=== PATIENT | male | born 1955 | race Caucasian/White ===

== ENCOUNTER 2024-06-08 20:31 | Observation (INO) | payer MEDICARE, OTHER, SELFPAY ==
[2024-06-08 16:04] VITALS: BP 142/92
[2024-06-08 16:32] LABS: % Basophils 0.7 % (0-2); % Immature Granulocytes 0.3 % (0-0.5); % Monocytes 11.3 % (1.7-9.3); % Neutrophils 54.7 % (42.2-75.2); Absolute Basophils 0.1 10^3/uL (0-0.2); Absolute Eosinophils 0.2 10^3/uL (0-0.7); Absolute Lymphocytes 2.3 10^3/uL (1.2-3.4); Absolute Monocytes 0.8 10^3/uL (0.1-0.6); Absolute Neutrophils 4.1 10^3/uL (1.4-6.5); Hematocrit 39.4 % (39.0-52.0); Hemoglobin 13.6 g/dL (13.0-18.0); Mean Corp Hgb Conc. 34.5 g/dL (33.0-37.0); Mean Corpuscular Hgb 31.2 pg (27.0-31.0); Mean Corpuscular Volume 90.4 fL (80.0-94.0); Mean Platelet Volume 10.7 fL (7.4-10.4); Nucleated Red Blood Cells % 0 % (-); Platelet Count 179 10^3/uL (130-400); Red Blood Cell Count 4.36 10^6/uL (4.70-6.10); Red Cell Dist. Width 13.2 % (11.5-14.5); White Blood Cell Count 7.4 10^3/uL (4.8-10.8)
--- NOTE | 2024-06-08 16:35 | ED.GENMED ---
History of Present Illness
General
Chief Complaint: Headache
Source: patient and family
Exam Limitations: none
Time Seen by Provider: 06/08/24 16:34
Nursing documentation reviewed up to this point in time: agreed with
History of Present Illness
History of Present Illness:
69-year-old male with history of GERD, HLD states he awakened yesterday feeling fine, developed headache and has had generalized headache off and on throughout the day yesterday and today. Went to [employer] 9 a.m. yesterday and while playing
pool at 11 a.m developed sudden onset dizziness, lightheadedness and trouble with his balance. He had to sit down. He went home, took Advil, sinus medication nasal spray and slept well through the night.
Woke 5 a.m. today feeling fine with no symptoms, got lunches around, did usual tasks, went to [employer] 9 a.m playing pool at 9:50 a.m again developed lightheadedness, felt faint, 'foggy in my head.' Friend told him he had NO slurred speech. Sat
and rested, went home 10:20 a.m. took BP over the next hour ranges from 100-116/61-72.
Pt denies numbness, tingling, weakness in extremities. He feels mildly foggy and lightheaded. Denies change in vision. Denies n/v/d/c. Denies abdominal pain.
Not anticoagulated.
No new medications
Past History
Past History
ED Past Medical History: Hypercholesterolemia and Other (IBS)
ED Past Surgical History: Other (Hernia repair, Polyps removed 2 weeks ago from today.)
Social History
Tobacco: Smoker (states he quit 2 months ago)
Alcohol: None
Personal:
Living: with family
Review of Systems
Review of Systems
Allergies reviewed?: Yes
All Other Systems: ROS reviewed and negative except as documented in HPI and ROS
Constitutional: Denies fever or fatigue
Respiratory: Denies trouble breathing
Cardiac: Denies chest pain, diaphoresis, palpitations or syncope
ABD/GI: Denies abdominal pain, nausea, vomiting, diarrhea or anorexia
: Reports difficulty voiding (enlarged prostate); Denies dysuria, frequency or urgency
Musculoskeletal: Reports other (nothing new than his typical neck, back arthritis pains); Denies edema
Skin: Reports no symptoms
Neurological: Reports dizzy and headache; Denies weakness or numbness
Phy Exam
Physical Exam
Physical Exam:
GENERAL: No acute distress. A&Ox3.
CONSTITUTIONAL: Afebrile.
EYES: PERRL, conjunctivae normal
Neck: Supple
ENMT: moist mucus membranes, Pharynx nl
RESPIRATORY: Regular respirations, nonlabored, lungs clear.
CARDIOVASCULAR: Regular rate and rhythm, no murmurs, no rubs.
GI: Soft, nontender, normal BS
MUSCULOSKELETAL: Moves with ease. Well perfused.
SKIN: Warm, dry, pink
PSYCH: Normal mood and affect. Well kept, interactive and appropriate
NEUROLOGIC: Awake, alert and oriented. Speech clear. Cranial nerves II through XII intact. No focal neurological deficits
Scores
NIH Stroke Score
Level of Consciousness: 0 - Alert
LOC Questions: 0-Answers both correctly
LOC Commands: 0-Performs both correctly
Best Horizontal Gaze: 0-Normal
Visual Marti: 0=Normal, no visual loss
Facial Palsy: 0=Normal, symmetrical
Motor - Right Arm: 0=No drift 10 seconds
Motor - Left Arm: 0=No drift 10 seconds
Motor - Right Le-No drift 5 seconds
Motor - Left Le-No drift 5 seconds
Limb Ataxia: 0-Absent
Sensation: 0-Normal
Best Language: 0-No aphasia
Dysarthria: 0-Normal
Extinction and Inattention: 0-No abnormality
Total Score:: 0
Course
Orders/Labs/Results
Orders:
Orders
06/08/24 16:09
Electrocardiogram (*1) Urgent
Reason for Study: Chest Pain
EKG- Treatment ONCE
06/08/24 16:18
Complete Blood Count/With Diff Urgent
Comprehensive Metabolic Panel Urgent
06/08/24 16:54
CT Head & Neck Angio W/wo IV Urgent
Comment:
Reason For Exam: headaches, lightheaded, imbalanced past 2 days
06/08/24 17:13
Orthostatic VS- Treatment ONCE
06/08/24 19:56
COVID-19 Antigen Urgent
Source: Nasal Swab
06/08/24 20:12
Admit/Transfer Patient As Directed
Co-Sign Provider:
Level of Care: Observation services
Assign to:: Telemetry
Physician / Group: Philipp
Diagnosis: Dysequilibrium
Reason for Telemetry: CVA/TIA
Date to Stop Telemetry: 06/11/24
Time to Stop Telemetry: 11:00
PRN Pain Medication Management As Directed
May give lesser potent ordered pain med per pt: Yes
preference::
Protocol:: Medication orders for pain may be administered in a
manner that supports deferring to patient preference
when the pt is:
- Requesting an ordered lesser potent pain medication.
Least to most potent pain medications are defined
as: acetaminophen < NSAID < tramadol < opioids
(morphine, oxycodone, hydromorphone).
- Requesting a lesser dose of the same medication IF
ORDERED.
- Requesting a less intrusive route of administration
if both routes are prescribed by the provider (PO <
IV).
06/08/24 20:19
Code Status As Directed
Resuscitation Status: Full Code
06/08/24 21:45
Acetaminophen [Tylenol/Feverall] 650 mg RECTAL Q4HPRN PRN
Acetaminophen [Tylenol] 650 mg PO Q4HPRN PRN
Meclizine [Antivert] 25 mg PO Q8HPRN PRN
06/08/24 21:45
DIETARY CONSULT Routine
Reason for Consult: stroke/TIA
MR Brain Without Contrast Routine
Comment:
Reason For Exam: dysequilibrium
Recent pill cam endoscopy?: No
Activity As Directed
Activity Level: Out of Bed-Early Mobility
With Assistance
Neurological Checks As Directed
Frequency: q4h
Additional Instructions:: q4h x 24h upon admission to the floor, then qshift & with any change in condition
and mental status
Patient Education As Directed
Type: Stroke education packet
Comment: provide to patient and family
Pneumatic Compression Sleeves As Directed
Type: Knee high
Vital Signs As Directed
Frequency: Per unit guidelines
Ot Eval And Treat Routine
Pt Eval And Treat Routine
Activity Level: Out of Bed-Early Mobility
DX Deep Vein Thrombosis Video Routine
06/08/24 22:00
Atorvastatin [Lipitor] 20 mg PO HS
Famotidine [Pepcid] 40 mg PO HS
06/11/24 11:00
DC Protocol for Telemetry ONCE
Abnormal Lab Results
06/08/24
16:18
RBC 4.36 L 10^6/uL
(4.70-6.10)
MCH 31.2 H pg
(27.0-31.0)
MPV 10.7 H fL
(7.4-10.4)
Absolute Monos (auto) 0.8 H 10^3/uL
(0.1-0.6)
Monocytes % 11.3 H %
(1.7-9.3)
Glucose 104 H mg/dl
(70-99)
06/08/24 16:18
06/08/24 16:18
Vital Signs
Initial and Last Documented VS:
Initial Vital Signs
Temp Pulse Resp BP Pulse Ox
98.3 F 73 16 142/92 98
06/08/24 16:04 06/08/24 16:04 06/08/24 16:04 06/08/24 16:04 06/08/24 16:04
Last Documented Vital Signs
Temp Pulse Resp BP Pulse Ox
97.8 F 68 18 131/87 97
06/08/24 21:57 06/08/24 21:57 06/08/24 21:57 06/08/24 21:57 06/08/24 21:57
MDM/Problems Addressed
Differential Diagnosis Includes:
CVA, TIA, vertigo
MDM/Problems Addressed:
69-year-old male with history of GERD, HLD states he awakened yesterday feeling fine, developed headache and has had generalized headache off and on throughout the day yesterday and today. Went to [employer] 9 a.m. yesterday and while playing
pool at 11 a.m developed sudden onset dizziness, lightheadedness and trouble with his balance. He had to sit down. He went home, took Advil, sinus medication nasal spray and slept well through the night.
Woke 5 a.m. today feeling fine with no symptoms, got lunches around, did usual tasks, went to [employer] 9 a.m playing pool at 9:50 a.m again developed lightheadedness, felt faint, 'foggy in my head.' Friend told him he had NO slurred speech. Sat
and rested, went home 10:20 a.m. took BP over the next hour ranges from 100-116/61-72.
Pt denies numbness, tingling, weakness in extremities. He feels mildly foggy and lightheaded. Denies change in vision. Denies n/v/d/c. Denies abdominal pain.
Not anticoagulated.
No new medications
Symptoms and exam not consistent with vertigo, concern for central etiology
Afebrile, NAD
Orthostatics neg
CBC CMP unremarkable
NIH score 0
7:[address] angio radiology report read: IMPRESSION:
1. No acute intracranial abnormality.
2. No CTA evidence for high-grade stenosis or occlusion of the arterial vasculature in the head or neck.
Case discussed with Dr. Juarez who agrees with plan to admit for MRI
Hospitalist notified of admission.
*EKG
EKG Intrepretation Date: 06/08/24
Interpretation: normal
Comparison EKG: no changes
Rate: bradycardiac
Rhythm: sinus
[place]: normal axis
Interval: normal interval
QRS Pattern: normal QRS
*Critical Care Note
Total Time (30-74mins, 75-104mins- exclusive of procedures): Not Applicable
ED Attending Note
-
Portions of this chart may have been created with voice recognition software.� Occasional wrong word or��sound alike� substitutions may have occurred due to the inherent limitations of voice recognition software.
Discharge Plan
Departure
Patient Disposition: Admit
Date of Disposition: 06/08/24
Time of Disposition: 19:21
Admit to: Med/Surg
Presentation/result/management discussed w/ accepting MD/DO: Hospitalist
Condition: Fair
Discharge Problem:
Intermittent lightheadedness, Headache, intermittent imbalance
Interventions
Interventions:
*Risk Screen - Suicide Last Done: 06/08/24 16:04
*General Assessment Last Done: 06/08/24 16:04
*Neglect/Abuse Screening Last Done: 06/08/24 16:04
ED- Fall Risk Assessment Last Done: 06/08/24 21:40
*ED COVID-19 Vaccine History Last Done: 06/08/24 17:04
*Nursing Disposition Last Done: 06/08/24 21:40
ED- Cardiac Assessment Last Done: 06/08/24 17:26
ED- Neurological Assessment Last Done: 06/08/24 17:26
ED Swallowing Screen Last Done: 06/08/24 17:26
Discharge Date and Time
Discharge Date/Time: 06/08/24 21:40
[2024-06-08 16:40] LABS: ALT (SGPT) 27 U/L (0-50); AST (SGOT) 30 U/L (17-59); Albumin 4.3 g/dl (3.5-5.0); Alkaline Phosphatase 60 U/L (38-126); Blood Urea Nitrogen 19 mg/dl (9-20); Calcium 9.1 mg/dl (8.4-10.2); Carbon Dioxide 30 mmol/L (22-30); Chloride 105 mmol/L (98-107); Glucose 104 mg/dl (70-99); Potassium 4.3 mmol/L (3.5-5.1); Sodium 141 mmol/L (135-145); Total Bilirubin 0.4 mg/dl (0.2-1.3); Total Protein 6.7 g/dl (6.3-8.2); eGFR > 60.00
[2024-06-08 17:04] VITALS: BMI 30.2
[2024-06-08 17:13] VITALS: BP 123/81; BP 136/71; BP 136/78; PULSE 52; PULSE 58; PULSE 64
[2024-06-08 19:27] VITALS: BP 156/59
[2024-06-08 20:16] LABS: COVID-19 Antigen Negative (Negative)
--- NOTE | 2024-06-08 20:26 | HPS.HSE ---
Addendum entered and electronically signed by Yaakov Segal DO 06/08/24 21:54:
Patient seen and examined independently. Agree with findings and plan as set forth by Daphnie Pedraza PA-C.
Patient is a 69y M with PMH significant for GERD and dyslipidemia who presents to ED complaining of headache and feeling 'off-balance'. Patient states that he initially developed symptoms last PM while shooting pool. He felt unsteady, lack of
coordination and mild headache. He though his symptoms were sinus-related and he took NSAIDs and nasal spray and went to sleep. Today he felt fairly well until his symptoms recurred - again while shooting pool. He notes some nausea but no emesis.
He denies any prior history of similar symptoms. Evaluation in the ED was fairly unremarkable. Nystagmus is appreciated on physical exam.
Ass:
Headache / Dizziness
Suspected Vertigo
Dyslipidemia
GERD
Plan:
Observe overnight for further evaluation and treatment.
Follow for any new / worsening symptoms.
Meclizine PRN.
MRI in the AM for completeness. Consider Neuro eval if any abnormality.
PT / Vestibular Therapy evaluation.
Original Note:
Family Physician
-
Family Physician: Gopi Faustin
Chief Complaint
-
Headache and Imbalance
History of Present Illness
Patient is a 69 y/o male past medical history of hyperlipidemia, and GERD who presents with headache and difficulty with balance. Patient reports yesterday while playing pool at the [employer] he developed a headache with was associated
difficultly with balance. He states he went home took some Advil and used a nasal spray with improvement in his symptoms. This morning he felt back his usual. He reports he went to the [employer] to play pool again today and he developed
recurrent symptoms. He reports feeling off, with a foggy feeling in his head and difficulty concentrating associated again with difficulty with balance. He denies spinning sensation or changes in hearing. He denies focal numbness, tingling or
weakness. There were no speech abnormalities noted during the event. He denies any symptoms at the present time.
Medical History
Past Medical History
Past Medical History: Reports Other
Additional Past Medical History:
Hyperlipidemia
GERD
Macular Degeneration
Past Surgical History: Reports Other
Additional Past Surgical History:
Hernia Repair
Social History
Tobacco: Smoker (Currently about 4 cigarettes per day)
Alcohol: None
Drug: Marijuana (Occasionally for sleep)
Family History
Family History: Not pertinent
Allergies / Home Medications
Allergies reflects when Allergies were last updated in [facility].
Home Medications with original date entered in [facility]
Allergy/Medication List:
Allergies
Allergy/AdvReac Type Severity Reaction Status Date / Time
tamsulosin [From Flomax] Allergy hypotension Verified 06/08/24 16:09
Home Medications
Bifidobacterium infantis 4 mg capsule (Align) 4 mg PO HS 06/08/24
atorvastatin 20 mg tablet 20 mg PO HS 06/08/24
famotidine 40 mg tablet 40 mg PO HS 06/08/24
glucosam 750 mg-chondroi 100 mg-hyalur 1.65 mg-CF borate 108 mg tablet ([employer]) 1 tab PO HS 06/08/24
ibuprofen 200 mg tablet 400 mg PO HS 06/08/24
meloxicam 15 mg tablet 15 mg PO HS 06/08/24
saw palmetto 160 mg capsule 160 mg PO HS 06/08/24
therapeutic multivitamin 1 tab PO HS 06/08/24
vitamins A,C,G-kyhz-xqishi 4,296 mcg-226 mg-90 mg capsule (PreserVision AREDS) 2 cap PO HS 06/08/24
Review of Systems
-
A 12 point ROS was completed and negative except as noted: Yes
Constitutional: Denies Fever or Chills
Respiratory: Denies Cough or Trouble Breathing
Cardiac: Denies Chest Pain or Palpitations
Abdomen/GI: Denies Abdominal Pain, Nausea or Vomiting
Neurological: Reports See HPI
Physical Exam
Vital Signs
Vital Signs
Temp Pulse Resp BP Pulse Ox
98.3 F 55 14 156/59 96
06/08/24 16:04 06/08/24 20:00 06/08/24 20:00 06/08/24 19:27 06/08/24 19:45
Physical Exam
General: Comfortable and Conversant
HEENT: Anicteric, Moist mucous membranes and Other (PERRL; EOMI with positive horizontal nystagmus)
Respiratory: Clear and Non Labored Respirations
Cardiac: S1/S2 and Regular Rhythm
GI: Soft and Non Tender
Musculoskeletal: No Clubbing, No Cyanosis and No Edema
Skin: Warm and Dry
Neuro: Awake, Alert, Oriented, No Motor Deficits and Other (Intact finger to nose); No Slurred Speech
Psych: Calm
Laboratory Results
-
06/08/24 16:18
06/08/24 16:18
Laboratory Results
Total Bilirubin 0.4 mg/dl (0.2-1.3) 06/08/24 16:18
AST 30 U/L (17-59) 06/08/24 16:18
ALT 27 U/L (0-50) 06/08/24 16:18
Alkaline Phosphatase 60 U/L (38-126) 06/08/24 16:18
Data Reviewed
-
CT Scan: Report Reviewed by me
Lab Data: Labs Reviewed by me
Impression/Plan
-
Dysequilibrium suspect BPPV, less likely TIA/CVA
-Consult PT/OT for vestibular therapy
-Add meclizine prn
-Check Brain MRI
-Hold on Neurology consult unless MRI is positive
Hyperlipidemia
-Continue atorvastatin
GERD
-Continue Pepcid
Tobacco Use Disorder
-Offer nicotine patch with patient declined
DVT proph: SCDs
Code Status: Full Code
[2024-06-08 21:57] VITALS: BP 131/87
[2024-06-08 21:58] VITALS: BMI 29.5
--- NOTE | 2024-06-08 22:00 | PTCARENOTE ---
Pt transferred from ED. Pt AAOX3, [employer], able to make needs known, no complaints of dizziness neuro checks initiated. Pt oriented to unit, call reyes within reach, bed in lowest position. Will continue with current plan.
[2024-06-08] MEDS: PEPCID 40 MG PO (22:09)
[2024-06-08] MEDS: TYLENOL 650 MG PO (22:09)
[2024-06-08] MEDS: LIPITOR 20 MG PO (22:09)
[2024-06-08 23:22] VITALS: BP 133/64
[2024-06-09 03:23] VITALS: BP 118/68
[2024-06-09 07:11] VITALS: BP 106/46
[2024-06-09 07:15] VITALS: BP 106/47; BP 131/73; BP 139/64; PULSE 50; PULSE 53; PULSE 55
--- NOTE | 2024-06-09 10:47 | CM ---
assistant credit manager reviewed patient's chart and met with patient, patient made aware that he is OBS, [place] letter provided to patient but not signed, patient reports he is leaving AMA. Patient lives with significant other in a 2 story home, patient is
independent with adl's and ambulation, no dme.
PCP: Dr. Faustin
Pharmacy: [facility]
Plan; Home today, patient left AMA.
--- NOTE | 2024-06-09 11:25 | PTCARENOTE ---
patient was frustrated this am when advertising writer came in room to assess pt. pt reported wanting tele pack off and IV out. pt was educated the importance of IV access and monitoring heart rhythm, but pt was just interested in receiving MRI and then going
home. pt also not wanting blood pressure taken or anything besides the MRI. pt pulled off monitor and threatened to walk out if IV wasn't removed and if he didn't get MRI soon. this RN called down to MRI and was told he would be seen soon.
at approximately 10am pt was called down to MRI and as soon as pt was on stretcher he reported needing a sedative. pt BP and HR low at this time. MD notified of patient vitals and made aware that he would like something for anxiety. pt placed back
in room pending medication for MRI. spoke with pt and wanted him to receive fluids & blood pressure before any medication was given. pt frustrated and signed paperwork for AMA. MD aware of pt signing AMA. pt got dressed and left hospital against
medical advice around 1030 this morning
--- NOTE | 2024-06-09 12:32 | W.PN.HOSP.TC ---
Today's Communication/Plan
-
pt left ama
vestibular therapy
f/u pcp outpatient
Assessment / Plan
Assessment / Plan
Physical Exam
General: Comfortable and Conversant
HEENT: Anicteric, Moist mucous membranes and Other (PERRL; EOMI with positive horizontal nystagmus)
Respiratory: Clear and Non Labored Respirations
Cardiac: S1/S2 and Regular Rhythm
GI: Soft and Non Tender
Musculoskeletal: No Clubbing, No Cyanosis and No Edema
Skin: Warm and Dry
Neuro: Awake, Alert, Oriented, No Motor Deficits and Other (Intact finger to nose); No Slurred Speech
Psych: Calm
Dysequilibrium suspect BPPV, less likely TIA/CVA
-Consult PT/OT for vestibular therapy
-Add meclizine prn
-Check Brain MRI
-Hold on Neurology consult unless MRI is positive
Hyperlipidemia
-Continue atorvastatin
GERD
-Continue Pepcid
Tobacco Use Disorder
-Offer nicotine patch with patient declined
DVT proph: SCDs
Code Status: Full Code
Patient refusing care; leaving AMA. educated on risks and patient verbalizes understanding and agrees.
Anticipated Discharge: Today
Subjective/Interval History
-
Date of Service: June 09, 2024
wants to leave ama, does not want BP taken or MRI done
Objective Data
-
Vital Signs:
Vital Signs
Temp Pulse Resp BP Pulse Ox
97.6 F 50 18 106/46 98
06/09/24 07:11 06/09/24 07:11 06/09/24 07:11 06/09/24 07:11 06/09/24 07:11
I&O
06/08/24 06/09/24 06/10/24
06:59 06:59 06:59
Intake Total 120 / 120
Output Total 250 / 250
Balance -130 / -130
Review of Systems
-
History Source: Patient
All other systems: Not reviewed unless documented
Data Reviewed
-
Labs: Labs Reviewed by me
--- NOTE | 2024-06-09 12:38 | W.DS.TRANS ---
DC Summary - Skip Pitman
-
Discharge Instructions:
Instructions:
Stand-Alone Forms:
Changes to Home Medications: No
Discharge Medications:
DC Medications w/original date entered in [employer]
Bifidobacterium infantis 4 mg capsule (Align) 4 mg PO HS Gastrointestinal Issue 06/08/24
atorvastatin 20 mg tablet 20 mg PO HS High Cholesterol 06/08/24
famotidine 40 mg tablet 40 mg PO HS Gastrointestinal Issue 06/08/24
glucosam 750 mg-chondroi 100 mg-hyalur 1.65 mg-CF borate 108 mg tablet ([employer] 1 tab PO HS Supplement 06/08/24
ibuprofen 200 mg tablet 400 mg PO HS Pain 06/08/24
meloxicam 15 mg tablet 15 mg PO HS Pain 06/08/24
saw palmetto 160 mg capsule 160 mg PO HS Supplement 06/08/24
therapeutic multivitamin 1 tab PO HS Supplement 06/08/24
vitamins A,C,U-icbu-xsrqgj 4,296 mcg-226 mg-90 mg capsule (PreserVision AREDS) 2 cap PO HS Supplement 06/08/24
Home Medication Changes
NA
Pending Results: No
== END 2024-06-09 12:19 | disposition left against medical advice (07) ==
LOC: 4 WEST ACU 20:31
PROVIDERS: Physician Assistant Medical; ADMITTING PHYSICIAN Hospitalist; ATTENDING PHYSICIAN Internal Medicine; EMERGENCY PHYSICIAN Emergency Medicine; FAMILY PHYSICIAN Family Medicine
DX: R42 Dizziness and giddiness (principal); R51.9 Headache, unspecified; K21.9 Gastro-esophageal reflux disease without esophagitis; E78.00 Pure hypercholesterolemia, unspecified; K58.9 Irritable bowel syndrome, unspecified; F17.210 Nicotine dependence, cigarettes, uncomplicated; R07.9 Chest pain, unspecified; H35.30 Unspecified macular degeneration; R00.1 Bradycardia, unspecified; R26.89 Other abnormalities of gait and mobility; Z86.0100 Personal history of colon polyps, unspecified; Z88.8 Allergy status to other drugs, medicaments and biological substances; Z11.52 Encounter for screening for COVID-19
CPT/HCPCS: 70496; 70498; 80053; 85025; 87811; 93005; 99285; Q9967

== ENCOUNTER 2024-06-09 17:32 | Observation (INO) | payer MEDICARE, OTHER, SELFPAY ==
[2024-06-09 13:01] VITALS: BP 168/97
[2024-06-09 15:58] VITALS: BP 180/84
--- NOTE | 2024-06-09 16:21 | ED.GENMED ---
History of Present Illness
General
Chief Complaint: Change in Mental Status
Source: patient
Exam Limitations: none
Time Seen by Provider: 06/09/24 16:15
Nursing documentation reviewed up to this point in time: agreed with
History of Present Illness
History of Present Illness:
Patient to ED with complaint of dizziness, feeling foggy. He was admitted here yesterday with complaint of headache, dizziness, weakness, blance issues. States this AM he felt worse and then became upset that he had not received any medication
prior to his scheduled MRI. States he wont be able to tolerate MRI without mediation to control anxiety. In anger he signed out AMA. He returns to ED requesting readmission to complete work-up. States he is still not feeling well. Brought to ED
by spouse for eval.
Past History
Past History
ED Past Medical History: Hypercholesterolemia and Other (IBS)
ED Past Surgical History: Other (Hernia repair, Polyps removed 2 weeks ago from today.)
Social History
Tobacco: Smoker (states he quit 2 months ago)
Alcohol: None
Personal:
Living: with family
Review of Systems
Review of Systems
Allergies reviewed?: Yes
All Other Systems: ROS reviewed and negative except as documented in HPI and ROS
Constitutional: Reports fatigue
EENT: Reports no symptoms
Respiratory: Reports no symptoms
Cardiac: Reports no symptoms
ABD/GI: Reports no symptoms
: Reports no symptoms
Musculoskeletal: Reports no symptoms
Skin: Reports no symptoms
Neurological: Reports dizzy and weakness
Psychiatric: Reports no symptoms
Phy Exam
General Physical Exam
General Presentation: mild distress
General age: appears stated age
General Skin: warm and dry
General Habitus: normal
Eye Exam
Eye Exam: PERRL, EOMI and conjunctiva normal
Cardiovascular Exam
Cardiovascular Exam: regular rate/rhythm and no edema
Gastrointestinal Exam
Gastrointestinal Exam: non tender and soft
Musculoskeletal Exam
Musculoskeletal Exam: full ROM and neuro vasc intact
Skin Exam
Skin Exam: normal color, warm/dry and no rash
Psychiatric Exam
Psychiatric Exam: normal mood/affect
Course
Orders/Labs/Results
Orders:
Orders
06/09/24 Breakfast
Cholesterol Lowering
At Your Request: Full Participation
Does patient need a safe tray?: No
Cholesterol Lowering: Sodium, 2 Gram
06/09/24 16:45
Admit/Transfer Patient As Directed
Co-Sign Provider:
Level of Care: Observation services
Assign to:: Telemetry
Physician / Group: sal
Diagnosis: dizziness
Reason for Telemetry: Arrhythmia
Date to Stop Telemetry: 06/12/24
Time to Stop Telemetry: 11:00
06/09/24 16:46
PRN Pain Medication Management As Directed
May give lesser potent ordered pain med per pt: Yes
preference::
Protocol:: Medication orders for pain may be administered in a
manner that supports deferring to patient preference
when the pt is:
- Requesting an ordered lesser potent pain medication.
Least to most potent pain medications are defined
as: acetaminophen < NSAID < tramadol < opioids
(morphine, oxycodone, hydromorphone).
- Requesting a lesser dose of the same medication IF
ORDERED.
- Requesting a less intrusive route of administration
if both routes are prescribed by the provider (PO <
IV).
06/09/24 16:47
Code Status As Directed
Resuscitation Status: Full Code
06/09/24 16:50
Nicotine [Nicoderm Transdermal] 21 mg TRANSDERM NOW STA
06/09/24 17:01
CMP [Comprehensive Metabolic Panel] Urgent
Complete Blood Count/With Diff Urgent
06/09/24 18:19
Acetaminophen [Tylenol] 650 mg PO Q4HPRN PRN
Bisacodyl [Dulcolax] 10 mg RECTAL C26FFIS PRN
Docusate W/Senna [Senokot-S] 1 tablet PO BIDPRN PRN
Lactated Ringers [Lr] 1,000 ml IV 75 mls/hr
Lorazepam [Ativan] 1 mg IV NOW PRN
Meclizine [Antivert] 12.5 mg PO Q8HPRN PRN
Polyethylene Glycol Powder [Miralax] 17 grams PO DAILYPRN PRN
06/09/24 18:19
Activity As Directed
Activity Level: As Tolerated
Orthostatic Vital Signs As Directed
Orthostatic VS Frequency: Now
Vital Signs As Directed
Frequency: Per unit guidelines
Ot Eval And Treat Routine
Pt Eval And Treat Routine
Treatment: Vestibular therapy
Activity Level: As Tolerated
DX Deep Vein Thrombosis Video Routine
06/09/24 19:58
Troponin I Q6H
06/09/24 20:50
Urinalysis Reflex To Culture Routine
Date Specimen was Collected: 06/09/24
Time Specimen was Collected: 20:47
06/09/24 22:00
Atorvastatin [Lipitor] 20 mg PO HS
Famotidine [Pepcid] 40 mg PO HS
06/10/24 00:00
Heparin 5,000 units SC Q8
06/10/24 02:34
Troponin I Q6H
06/10/24 08:13
Complete Blood Count/No Diff IN AM
Comprehensive Metabolic Panel IN AM
Magnesium IN AM
TSH IN AM
06/12/24 11:00
DC Protocol for Telemetry ONCE
Abnormal Lab Results
06/09/24
17:01
RBC 4.53 L 10^6/uL
(4.70-6.10)
MPV 10.8 H fL
(7.4-10.4)
Absolute Neuts (auto) 6.9 H 10^3/uL
(1.4-6.5)
Absolute Monos (auto) 0.7 H 10^3/uL
(0.1-0.6)
Lymphocytes % 20.1 L %
(20.5-51.1)
06/09/24 17:01
06/09/24 17:01
Vital Signs
Initial and Last Documented VS:
Initial Vital Signs
Temp Pulse Resp BP Pulse Ox
98.5 F 83 16 168/97 97
06/09/24 13:01 06/09/24 13:01 06/09/24 13:01 06/09/24 13:01 06/09/24 13:01
Last Documented Vital Signs
Temp Pulse Resp BP Pulse Ox
97.6 F 60 16 140/80 97
06/10/24 14:59 06/10/24 14:59 06/10/24 14:59 06/10/24 14:59 06/10/24 14:59
MDM/Problems Addressed
Differential Diagnosis Includes:
Patient to ED requesting readmission. He was admitted here yesterday for change in mental status. Reports feeling foggy, weak. This AM he became agitated prior to AMA because he felt he needed sedation prior to his MRI and states nothing had been
ordered. He signed himself out AMA but now returns because he is still symptomatic.Brought back to ED by family. No new symptoms. WIll re-admit to hospitalist
*Critical Care Note
Total Time (30-74mins, 75-104mins- exclusive of procedures): Not Applicable
ED Attending Note
-
Portions of this chart may have been created with voice recognition software.� Occasional wrong word or��sound alike� substitutions may have occurred due to the inherent limitations of voice recognition software.
Discharge Plan
Departure
Patient Disposition: Admit
Date of Disposition: 06/09/24
Time of Disposition: 16:26
Presentation/result/management discussed w/ accepting MD/DO: Hospitalist
Condition: Fair
Covid-19: Not Applicable
Discharge Problem:
Headache, Dizziness, Ambulatory dysfunction
Interventions
Interventions:
*Risk Screen - Suicide Last Done: 06/09/24 13:01
*General Assessment Last Done: 06/09/24 13:01
ED- Fall Risk Assessment Last Done: 06/09/24 15:56
*ED COVID-19 Vaccine History Last Done: 06/09/24 13:01
*Nursing Disposition Last Done: 06/09/24 18:53
ED- Pulmonary Assessment Last Done: 06/09/24 15:56
ED- Neurological Assessment Last Done: 06/09/24 15:56
ED- Cardiac Assessment Last Done: 06/09/24 15:56
Discharge Date and Time
Discharge Date/Time: 06/09/24 19:06
[2024-06-09] MEDS: NICODERM TRANSDERMAL 21 MG TRANSDERM (17:01)
--- NOTE | 2024-06-09 17:02 | HPS.HSE ---
Family Physician
-
Family Physician: Gopi Faustin
Chief Complaint
-
dizziness
History of Present Illness
69y M with PMH significant for GERD and dyslipidemia who presents to ED complaining of headache and feeling 'off-balance'. Patient symptoms started while playing pool. Symptoms included unsteadiness, lacrimation, mild headache. Patient was
admitted for workup, and nystagmus noted on physical exam. Patient was for MRI and PT/OT to evaluate although patient left AMA. Now hypertensive with blood pressure 180/84, RR 20, pulse 97. Afebrile. CT angio shows with no evidence of high-grade
stenosis or occlusion.
Medical History
Past Medical History
Past Medical History: Reports Other
Additional Past Medical History:
Hyperlipidemia
GERD
Macular Degeneration
Past Surgical History: Reports Other
Additional Past Surgical History:
Hernia Repair
Social History
Tobacco: Smoker (Currently about 4 cigarettes per day)
Alcohol: None
Drug: Marijuana (Occasionally for sleep)
Family History
Family History: Not pertinent
Allergies / Home Medications
Allergies reflects when Allergies were last updated in [facility].
Home Medications with original date entered in [facility]
Allergy/Medication List:
Allergies
Allergy/AdvReac Type Severity Reaction Status Date / Time
tamsulosin [From Flomax] Allergy hypotension Verified 06/08/24 16:09
Home Medications
Bifidobacterium infantis 4 mg capsule (Align) 4 mg PO HS 06/08/24
atorvastatin 20 mg tablet 20 mg PO HS 06/08/24
famotidine 40 mg tablet 40 mg PO HS 06/08/24
glucosam 750 mg-chondroi 100 mg-hyalur 1.65 mg-CF borate 108 mg tablet (Move Free [employer]) 1 tab PO HS 06/08/24
ibuprofen 200 mg tablet 400 mg PO HS 06/08/24
meloxicam 15 mg tablet 15 mg PO HS 06/08/24
saw palmetto 160 mg capsule 160 mg PO HS 06/08/24
therapeutic multivitamin 1 tab PO HS 06/08/24
vitamins A,C,R-neng-ivjhnb 4,296 mcg-226 mg-90 mg capsule (PreserVision AREDS) 2 cap PO HS 06/08/24
Review of Systems
-
History Source: Patient
A 12 point ROS was completed and negative except as noted: Yes
Physical Exam
Vital Signs
Vital Signs
Temp Pulse Resp BP Pulse Ox
98.5 F 97 20 180/84 97
06/09/24 13:01 06/09/24 15:58 06/09/24 15:58 06/09/24 15:58 06/09/24 15:58
Physical Exam
General: Comfortable and Conversant
HEENT: Anicteric and Moist mucous membranes
Respiratory: Clear and Non Labored Respirations
Cardiac: S1/S2 and Regular Rhythm
GI: Soft and Non Tender
Musculoskeletal: No Clubbing, No Cyanosis and No Edema
Skin: Warm and Dry
Neuro: Awake, Alert, Oriented, No Motor Deficits and Other (Intact finger to nose); No Slurred Speech
Psych: Calm
Impression/Plan
-
IMPRESSION:
69y M with PMH significant for GERD and dyslipidemia who presents to ED complaining of headache and feeling 'off-balance'.
PLAN:
Unsteadiness
Dysequilibrium suspect BPPV, less likely TIA/CVA
-Consult PT/OT for vestibular therapy
-Add meclizine prn
-Check Brain MRI
-Hold on Neurology consult unless MRI is positive
Hyperlipidemia
-Continue atorvastatin
GERD
-Continue Pepcid
Tobacco Use Disorder
-Offer nicotine patch with patient declined
DVT proph: HSQ
Code Status: Full Code
[2024-06-09 17:18] LABS: % Basophils 0.4 % (0-2); % Eosinophils 1.4 % (0-6); % Immature Granulocytes 0.3 % (0-0.5); % Lymphocytes 20.1 % (20.5-51.1); % Monocytes 7.2 % (1.7-9.3); % Neutrophils 70.6 % (42.2-75.2); Absolute Eosinophils 0.1 10^3/uL (0-0.7); Absolute Monocytes 0.7 10^3/uL (0.1-0.6); Absolute Neutrophils 6.9 10^3/uL (1.4-6.5); Hematocrit 39.2 % (39.0-52.0); Hemoglobin 13.9 g/dL (13.0-18.0); Mean Corp Hgb Conc. 35.5 g/dL (33.0-37.0); Mean Corpuscular Hgb 30.7 pg (27.0-31.0); Mean Corpuscular Volume 86.5 fL (80.0-94.0); Mean Platelet Volume 10.8 fL (7.4-10.4); Nucleated Red Blood Cells % 0 % (-); Platelet Count 182 10^3/uL (130-400); Red Blood Cell Count 4.53 10^6/uL (4.70-6.10); Red Cell Dist. Width 13.2 % (11.5-14.5); White Blood Cell Count 9.8 10^3/uL (4.8-10.8)
[2024-06-09 17:36] LABS: ALT (SGPT) 31 U/L (0-50); AST (SGOT) 32 U/L (17-59); Albumin 4.6 g/dl (3.5-5.0); Alkaline Phosphatase 67 U/L (38-126); Blood Urea Nitrogen 16 mg/dl (9-20); Calcium 9.5 mg/dl (8.4-10.2); Carbon Dioxide 25 mmol/L (22-30); Chloride 104 mmol/L (98-107); Glucose 93 mg/dl (70-99); Potassium 4.1 mmol/L (3.5-5.1); Sodium 142 mmol/L (135-145); Total Bilirubin 0.6 mg/dl (0.2-1.3); eGFR > 60.00
[2024-06-09 19:00] VITALS: BP 129/83; BMI 29.8
[2024-06-09 20:27] LABS: Troponin I < 0.012 ng/ml
[2024-06-09] MEDS: LR 1000 IV (20:32)
[2024-06-09] MEDS: PEPCID 40 MG PO (20:35)
[2024-06-09] MEDS: MOTRIN 400 MG PO (20:35)
[2024-06-09] MEDS: LIPITOR 20 MG PO (20:36)
[2024-06-09 20:58] LABS: Urine Albumin Negative (Neg - Trace); Urine Bilirubin Negative (Negative); Urine Character Clear (Clear); Urine Color Yellow; Urine Glucose Negative (Negative); Urine Ketone Negative (Negative); Urine Leukocyte Negative (Negative); Urine Nitrite Negative (Negative); Urine Occult Blood Negative (Negative); Urine Specific Gravity 1.015 (<1.030); Urine Urobilinogen Negative (Neg - 1+)
[2024-06-09 23:12] VITALS: BP 120/61
[2024-06-10] MEDS: HEPARIN 5000 UNITS SC ×2 (00:06→07:48)
[2024-06-10 03:00] VITALS: BP 134/72
[2024-06-10 03:22] LABS: Troponin I < 0.012 ng/ml
[2024-06-10 07:15] VITALS: BP 144/83
[2024-06-10 08:33] LABS: Hematocrit 41.9 % (39.0-52.0); Hemoglobin 14.5 g/dL (13.0-18.0); Mean Corp Hgb Conc. 34.6 g/dL (33.0-37.0); Mean Corpuscular Hgb 30.7 pg (27.0-31.0); Mean Corpuscular Volume 88.6 fL (80.0-94.0); Mean Platelet Volume 10.7 fL (7.4-10.4); Platelet Count 176 10^3/uL (130-400); Red Blood Cell Count 4.73 10^6/uL (4.70-6.10)
[2024-06-10 08:54] LABS: Troponin I < 0.012 ng/ml
[2024-06-10 09:26] VITALS: BP 139/77; PULSE 61
[2024-06-10 09:29] VITALS: BP 139/77; PULSE 61
--- NOTE | 2024-06-10 09:37 | PTOTSP ---
The patient is functionally independent, demonstrating steady gait with no balance or coordination deficits. Vestibular testing was negative. No PT needs indentified at this time, will sign off.
[2024-06-10 09:46] LABS: ALT (SGPT) 34 U/L (0-50); AST (SGOT) 34 U/L (17-59); Albumin 4.5 g/dl (3.5-5.0); Alkaline Phosphatase 67 U/L (38-126); Blood Urea Nitrogen 18 mg/dl (9-20); Calcium 9.2 mg/dl (8.4-10.2); Carbon Dioxide 29 mmol/L (22-30); Chloride 102 mmol/L (98-107); Estimated Creatinine Clearance 83 ml/min; Glucose 97 mg/dl (70-99); Magnesium 1.9 mg/dl (1.6-2.3); Potassium 4.3 mmol/L (3.5-5.1); Sodium 141 mmol/L (135-145); Total Bilirubin 0.9 mg/dl (0.2-1.3); Total Protein 6.8 g/dl (6.3-8.2); eGFR > 60.00
[2024-06-10 10:09] LABS: TSH 2.28 uIU/ml (0.47-4.68)
--- NOTE | 2024-06-10 10:10 | CM ---
Patient seen bedside
TIFFANIE compelted.
Patient lives with spouse in a 1 stryhome with 2 steps to enter.
Patienbt independent pror to admission without assistive devices.
Patient drives.
Denies home care needs.
For MRI today.
denies insecurities with transportation, food, bills.
GARDNER completed.
PCP: Roxie
Pharmacy: [facility]
Plan: home no needs.
[2024-06-10 10:50] VITALS: BP 134/75; BP 147/75; BP 152/80; PULSE 59; PULSE 60; PULSE 70
[2024-06-10] MEDS: LR IV (12:02)
--- NOTE | 2024-06-10 12:34 | W.PN.HOSP.TC ---
Addendum entered and electronically signed by Lamin Quiñones MD 06/11/24 15:36:
[id number]
Original Note:
Today's Communication/Plan
-
pt/ot
meclizine prn
f/u MRI, ECHO - if ok - can dc
F/u PCP outpatient; Neuro if continued dizziness
Assessment / Plan
Assessment / Plan
Physical Exam
General: Comfortable and Conversant
HEENT: Anicteric and Moist mucous membranes
Respiratory: Clear and Non Labored Respirations
Cardiac: S1/S2 and Regular Rhythm
GI: Soft and Non Tender
Musculoskeletal: No Clubbing, No Cyanosis and No Edema
Skin: Warm and Dry
Neuro: Awake, Alert, Oriented, No Motor Deficits and Other (Intact finger to nose); No Slurred Speech
Psych: Calm
69y M with PMH significant for GERD and dyslipidemia who presents to ED complaining of headache and feeling 'off-balance'.
PLAN:
Unsteadiness
Dysequilibrium suspect BPPV, less likely TIA/CVA
-resolved
- PT/OT for vestibular therapy
-Add meclizine prn
-Brain MRI pending
-F/u PCP outpateint
-F/u Neuro outpatient if continued dizziness
-Telemetry
-F/u ECHO
Hyperlipidemia
-Continue atorvastatin
GERD
-Continue Pepcid
Tobacco Use Disorder
-Offer nicotine patch with patient declined
DVT proph: HSQ
Code Status: Full Code
More than 30 minutes spent in discharge including
Final examination of the patient
Summarizing hospital stay
Instructions for continuing care to all relevant caregivers
Preparation of discharge records, prescriptions, and referral forms
Total time spent (35 in minutes):
Anticipated Discharge: Today
Subjective/Interval History
-
Date of Service: June 10, 2024
Dizziness resolved
Orthostatics negative
Objective Data
-
Labs:
Laboratory Results
06/10/24
08:13
WBC 6.0
Hgb 14.5
Hct 41.9
Plt Count 176
Sodium 141
Potassium 4.3
Chloride 102
Carbon Dioxide 29
BUN 18
Creatinine 0.8
Glucose 97
Calcium 9.2
Total Bilirubin 0.9
AST 34
ALT 34
Alkaline Phosphatase 67
Vital Signs:
Vital Signs
Temp Pulse Resp BP Pulse Ox
97.4 F 55 14 144/83 96
06/10/24 07:15 06/10/24 07:15 06/10/24 07:15 06/10/24 07:15 06/10/24 07:15
I&O
06/09/24 06/10/24 06/11/24
06:59 06:59 06:59
Intake Total 360 / 360
Balance 360 / 360
Review of Systems
-
History Source: Patient
All other systems: Not reviewed unless documented
Data Reviewed
-
MRI: Image personally visualized and interpreted
Medical Tests (Nuc Med, Echo etc): Image personally visualized and interpreted
Labs: Labs Reviewed by me
--- NOTE | 2024-06-10 12:40 | W.DS.TRANS ---
DC Summary - [employer]
-
Discharge Instructions:
Discharge Diagnosis/Procedures Vertigo
Diet Low Fat,Low Cholesterol
Activity As tolerated
Blood Work cbc, cmp in 1 week with pcp
Instructions:
Stand-Alone Forms:
Changes to Home Medications: No
Discharge Medications:
DC Medications w/original date entered in [email or web address]
Bifidobacterium infantis 4 mg capsule (Align) 4 mg PO HS Gastrointestinal Issue 06/08/24
atorvastatin 20 mg tablet 20 mg PO HS High Cholesterol 06/08/24
famotidine 40 mg tablet 40 mg PO HS Gastrointestinal Issue 06/08/24
glucosam 750 mg-chondroi 100 mg-hyalur 1.65 mg-CF borate 108 mg tablet (Move Free [employer]) 1 tab PO HS Supplement 06/08/24
ibuprofen 200 mg tablet 400 mg PO HS Pain 06/08/24
meloxicam 15 mg tablet 15 mg PO HS Pain 06/08/24
saw palmetto 160 mg capsule 160 mg PO HS Supplement 06/08/24
therapeutic multivitamin 1 tab PO HS Supplement 06/08/24
vitamins A,C,R-nfns-nnwgtt 4,296 mcg-226 mg-90 mg capsule (PreserVision AREDS) 2 cap PO HS Supplement 06/08/24
acetaminophen 325 mg tablet 650 mg PO Q4HPRN PRN mild pain/fever 06/09/24
Home Medication Changes
no
Pending Results: No
[2024-06-10 14:59] VITALS: BP 140/80
[2024-06-10] MEDS: HEPARIN SC (15:00)
== END 2024-06-10 15:14 | disposition home or self-care (01) ==
LOC: 3 WEST ACU 17:32
PROVIDERS: Nurse Practitioner; ADMITTING PHYSICIAN Internal Medicine; EMERGENCY PHYSICIAN Emergency Medicine; FAMILY PHYSICIAN Family Medicine
DX: R42 Dizziness and giddiness (principal); R41.82 Altered mental status, unspecified; R51.9 Headache, unspecified; R53.1 Weakness; F41.9 Anxiety disorder, unspecified; E78.00 Pure hypercholesterolemia, unspecified; K58.9 Irritable bowel syndrome, unspecified; R26.2 Difficulty in walking, not elsewhere classified; K21.9 Gastro-esophageal reflux disease without esophagitis; I10 Essential (primary) hypertension; F17.210 Nicotine dependence, cigarettes, uncomplicated; R00.1 Bradycardia, unspecified
CPT/HCPCS: 70551; 80053; 81003; 83735; 84443; 84484; 85025; 85027; 93306; 97161; 97166; 99284; 99406; G0378